=== PATIENT | male | born 1975 | race African-American/Black ===

== ENCOUNTER 2020-12-29 07:55 | Day surgery (SDC) | payer BC ==
[2020-12-29] MEDS ORDERED: Ketorolac Tromethamine 30 MG/ML VIAL ONE (08:55)
[2020-12-29] MEDS ORDERED: Acetaminophen 500 MG TAB ONE (08:55)
[2020-12-29] MEDS ORDERED: Bupivacaine 0.25% HCL 30 ML VIAL ONE (10:11)
[2020-12-29] MEDS ORDERED: EPINEPHrine 1 MG/ML AMP ONE (10:11)
[2020-12-29] MEDS ORDERED: Lidocaine 2% PF 5 ML VIAL ONE (10:11)
[2020-12-29] MEDS ORDERED: Fentanyl 100 MCG/2 ML VIAL ONE (10:12)
[2020-12-29] MEDS ORDERED: Propofol 500 MG/50 ML VIAL ONE (10:13)
[2020-12-29] MEDS ORDERED: Lidocaine 1% PF 5 ML VIAL ONE (10:37)
== END 2020-12-29 12:53 | disposition home or self-care (01) ==
LOC: SDC 07:55
PROVIDERS: ATTEND Surgery
PROC: 02HV33Z Insertion of Infusion Device into Superior Vena Cava, Percutaneous Approach (ICD-10-PCS; principal; 2020-12-29)
DX: C18.9 Malignant neoplasm of colon, unspecified (principal); C78.7 Secondary malignant neoplasm of liver and intrahepatic bile duct; Z87.891 Personal history of nicotine dependence
CPT/HCPCS: 71045; C1788; J0171; J0690; J1642; J1885; J2001; J2704; J3010; S0020

== ENCOUNTER 2021-08-01 10:30 | Outpatient (CLI) | payer BC | END 2021-08-01 10:31 | disposition home or self-care (01) | LOC: RAD 10:30 | PROVIDERS: ATTEND Internal Medicine Hematology & Oncology | DX: Z45.2 Encounter for adjustment and management of vascular access device (principal); T82.598A Other mechanical complication of other cardiac and vascular devices and implants, initial encounter; R60.0 Localized edema; C18.7 Malignant neoplasm of sigmoid colon; D50.0 Iron deficiency anemia secondary to blood loss (chronic) | CPT/HCPCS: 36005; 36598 ==

== ENCOUNTER 2021-08-01 13:50 | Outpatient (CLI) | payer BC ==
[2021-08-01 23:49] LABS: SARS-CoV-2 PCR by NAA Not Detected (NotDetected)
== END 2021-08-01 13:51 | disposition home or self-care (01) ==
LOC: LABBT 13:50
PROVIDERS: ATTEND Surgery
DX: Z01.812 Encounter for preprocedural laboratory examination (principal); C18.9 Malignant neoplasm of colon, unspecified; Z20.822 Contact with and (suspected) exposure to COVID-19; Z45.2 Encounter for adjustment and management of vascular access device; T82.598A Other mechanical complication of other cardiac and vascular devices and implants, initial encounter; R60.0 Localized edema; C18.7 Malignant neoplasm of sigmoid colon; D50.0 Iron deficiency anemia secondary to blood loss (chronic)
CPT/HCPCS: 36005; 36598; U0003; U0005

== ENCOUNTER 2021-08-03 07:26 | Day surgery (SDC) | payer BC ==
[2021-08-02 09:58] VITALS: BMI 20.8
[2021-08-03] MEDS ORDERED: ceFAZolin 2 GM/DEX 5% 100 ML BAG ONE (08:55)
[2021-08-03] MEDS ORDERED: Fentanyl 100 MCG/2 ML VIAL ONE (09:03)
[2021-08-03] MEDS ORDERED: Propofol 500 MG/50 ML VIAL ONE (09:03)
[2021-08-03] MEDS ORDERED: Bupivacaine 0.25% HCL 30 ML VIAL ONE (09:16)
[2021-08-03] MEDS ORDERED: Lidocaine 1% w/Epinephrine 1:100K 20 ML VIAL ONE (09:16)
[2021-08-03] MEDS ORDERED: PROPOFOL 200 MG/20 ML VIAL ONE (09:32)
[2021-08-03] MEDS ORDERED: Lidocaine 1% PF 5 ML VIAL ONE (09:32)
[2021-08-03] MEDS ORDERED: Sodium Chloride 0.9% 10 ML ONE (09:58)
== END 2021-08-03 11:43 | disposition home or self-care (01) ==
LOC: SDC 07:26
PROVIDERS: ATTEND Surgery
PROC: 02HV33Z Insertion of Infusion Device into Superior Vena Cava, Percutaneous Approach (ICD-10-PCS; principal; 2021-08-03)
DX: T82.538A Leakage of other cardiac and vascular devices and implants, initial encounter (principal); C18.9 Malignant neoplasm of colon, unspecified; C79.9 Secondary malignant neoplasm of unspecified site; I10 Essential (primary) hypertension
CPT/HCPCS: 71045; C1788; J1642; J2704; J3010; S0020

== ENCOUNTER 2021-10-25 05:10 | Observation (INO) | payer BC ==
[2021-10-25] MEDS ORDERED: Ondansetron PF 4 MG/2 ML Vial ONE (05:45)
[2021-10-25] MEDS ORDERED: Morphine 4 MG/ML VIAL ONE ×3 (05:45→14:42)
[2021-10-25] MEDS ORDERED: Ondansetron ODT 8 MG TAB ONE (06:29)
[2021-10-25] MEDS ORDERED: Morphine 10 MG/ML VIAL ONE (06:29)
[2021-10-25 06:35] LABS: ALT (SGPT) 24 U/L (8-55); AST (SGOT) 33 U/L (5-34); Albumin 3.2 g/dL (3.5-5.0); Alkaline Phosphatase 128 U/L (40-110); Anion Gap 13 mmol/L (10-20); BUN (Urea Nitrogen) 10 mg/dL (8.9-20.6); Bilirubin, Total 0.4 mg/dL (0.2-1.2); Calc. Creatinine Clearance 0 mL/min (70-130); Calcium 8.6 mg/dL (7.8-10.44); Carbon Dioxide 27 mmol/L (22-29); Chloride 99 mmol/L (98-107); Globulin 3.5 g/dL (2.4-3.5); Glucose 92 mg/dL (70-105); Lipase 22 U/L (8-78); Potassium 4.2 mmol/L (3.5-5.1); Protein, Total 6.7 g/dL (6.0-8.3); Sodium 135 mmol/L (136-145)
[2021-10-25 07:55] LABS: #Lymphocytes 0.8 thou/uL (1.20-3.40); #Monocytes 0.2 thou/uL (0.11-0.59); #Neutrophils 4.1 thou/uL (1.40-6.50); %Basophils 0.1 % (0.0-1.0); %Eosinophils 0.6 % (0.0-10.0); %Lymphocytes 16.4 % (21.0-51.0); %Monocytes 2.8 % (0.0-10.0); Hemoglobin 9.5 g/dL (14.0-18.0); Mean Corpuscular HGB CONC 32.3 g/dL (32.0-36.0); Mean Corpuscular Hemoglobin 28.8 pg (27.0-31.0); Mean Corpuscular Volume 89.1 fL (78.0-98.0); Mean Platelet Volume 7.1 fL (7.4-10.4); Platelet Count 364 thou/uL (130-400); RBC Distribution Width 17.6 % (11.5-14.5); White Blood Cell (WBC) Count 5.1 thou/uL (4.8-10.8)
[2021-10-25] MEDS ORDERED: Bisacodyl 10 MG SUPP PR PRN (10:07)
[2021-10-25] MEDS ORDERED: Calcium Carbonate 500 MG ChewTAB PO PRN (10:07)
[2021-10-25] MEDS ORDERED: Bisacodyl 5 MG TAB PO PRN (10:07)
[2021-10-25] MEDS ORDERED: Ondansetron ODT 4 MG TAB PO PRN (10:07)
[2021-10-25] MEDS ORDERED: Ondansetron PF 4 MG/2 ML Vial IVP PRN (10:07)
[2021-10-25] MEDS ORDERED: Polyethylene Glycol 3350 17 GM Packet PO SCH ×2 (10:30→11:45)
[2021-10-25] MEDS ORDERED: Senokot S 8.6-50 MG TAB PO SCH ×2 (10:30→11:45)
[2021-10-25] MEDS ORDERED: Simethicone Chewable 80 MG TAB PO PRN (10:31)
[2021-10-25] MEDS ORDERED: Simethicone Chewable 80 MG TAB PO SCH ×2 (10:45→11:45)
[2021-10-25 11:32] LABS: Bilirubin Negative (Negative); Blood, Urine Negative (Negative); Clarity Clear (Clear); Glucose, Urine (Dipstick) Normal (Negative); Ketone, Urine Negative (Negative); Leukocyte Negative Leu/uL (Negative); Nitrite Negative (Negative); Protein, Urine (Dipstick) 10 mg/dL (Neg-Trace); Specific Gravity, Urine 1.041 (1.002-1.036); Urobilinogen 3 mg/dL (Less than 2)
[2021-10-25] MEDS ORDERED: Naloxone HCl 0.4 mg/ml Vial IV PRN (12:37)
[2021-10-25] MEDS ORDERED: Furosemide 20 MG TAB PO SCH (12:45)
[2021-10-25] MEDS ORDERED: METHadone HCl 10 MG TAB PO SCH (12:45)
[2021-10-25] MEDS ORDERED: DULoxetine 30 MG CAP PO SCH (12:45)
[2021-10-25] MEDS ORDERED: oxyCODONE/Acetaminophen 5 mg/325 mg Tablet PO PRN (12:51)
[2021-10-25 12:56] LABS: SARS-CoV-2 NAA Rapid Test Not Detected (NotDetected)
[2021-10-25] MEDS ORDERED: Morphine 4 MG/ML VIAL SLOW IVP SCH (14:30)
[2021-10-25] MEDS ORDERED: Iopamidol-370 76% 500 ML 1 ML ONE (16:20)
[2021-10-25] MEDS ORDERED: Fleet Enema 133 ML BOT PR SCH (17:30)
[2021-10-25] MEDS: METHadone HCl 10 MG TAB PO SCH (19:39)
[2021-10-25] MEDS: oxyCODONE ER 20 MG TAB PO SCH (20:17)
[2021-10-25] MEDS: Polyethylene Glycol 3350 17 GM Packet PO SCH (21:25)
[2021-10-25] MEDS: Senokot S 8.6-50 MG TAB PO SCH (21:25)
[2021-10-25] MEDS ORDERED: Fentanyl 100 MCG/2 ML VIAL SLOW IVP SCH (22:45)
[2021-10-25 23:18] VITALS: BMI 18.4
[2021-10-26] MEDS ORDERED: Fentanyl 100 MCG/2 ML VIAL SLOW IVP SCH ×2 (02:00→03:45)
[2021-10-26] MEDS ORDERED: Morphine 4 MG/ML VIAL SLOW IVP SCH (07:15)
[2021-10-26] MEDS: METHadone HCl 10 MG TAB PO SCH (08:24)
[2021-10-26] MEDS: oxyCODONE ER 20 MG TAB PO SCH (08:25)
[2021-10-26] MEDS: Polyethylene Glycol 3350 17 GM Packet PO SCH (08:26)
[2021-10-26] MEDS: Senokot S 8.6-50 MG TAB PO SCH (08:26)
[2021-10-26] MEDS ORDERED: Enoxaparin Sodium 40 MG/0.4 ML SYRINGE SC SCH (09:00)
[2021-10-26] MEDS ORDERED: DULoxetine 30 MG CAP PO SCH (09:00)
[2021-10-26] MEDS ORDERED: Furosemide 20 MG TAB PO SCH (09:00)
[2021-10-26 12:01] VITALS: BP 153/94; TEMP 98
== END 2021-10-26 14:20 | disposition home or self-care (01) ==
LOC: ERS 05:10 → INTOOBSV 09:35 → ERHOLD 09:35 → SURG B 17:43
PROVIDERS: ADMIT Family Medicine; ATTEND Family Medicine
DX: R10.9 Unspecified abdominal pain (principal); K59.03 Drug induced constipation; T40.3X5A Adverse effect of methadone, initial encounter; C18.7 Malignant neoplasm of sigmoid colon; C78.7 Secondary malignant neoplasm of liver and intrahepatic bile duct; C78.6 Secondary malignant neoplasm of retroperitoneum and peritoneum; E78.5 Hyperlipidemia, unspecified; R18.8 Other ascites; J90 Pleural effusion, not elsewhere classified; F17.290 Nicotine dependence, other tobacco product, uncomplicated; Z79.891 Long term (current) use of opiate analgesic; Z79.899 Other long term (current) drug therapy; Z20.822 Contact with and (suspected) exposure to COVID-19
CPT/HCPCS: 36415; 74177; 80053; 81003; 83605; 83690; 83880; 85025; 93005; 96372; 96374; 96375; 96376; G0378; J1642; J1650; J2270; J2405; J3010; Q0162; Q9967; U0002

== ENCOUNTER 2022-01-29 09:27 | Day surgery (SDC) | payer BC ==
[2022-01-29] MEDS ORDERED: diphenhydrAMINE 25 MG CAP ONE (10:25)
[2022-01-29] MEDS ORDERED: Acetaminophen 500 MG TAB ONE (10:25)
[2022-01-29 15:25] VITALS: BP 125/79; TEMP 98.5
== END 2022-01-29 15:25 | disposition home or self-care (01) ==
LOC: ONC/OP 09:27
PROVIDERS: ATTEND Internal Medicine Hematology & Oncology
PROC: 30233N1 Transfusion of Nonautologous Red Blood Cells into Peripheral Vein, Percutaneous Approach (ICD-10-PCS; principal; 2022-01-29)
DX: D64.9 Anemia, unspecified (principal); D69.6 Thrombocytopenia, unspecified
CPT/HCPCS: 36430; 86850; 86900; 86901; J1642; P9016